=== PATIENT | female | born 1940 | race Caucasian/White ===

== ENCOUNTER 2017-12-11 17:54 | Inpatient (IN) | payer MEDICARE ==
--- NOTE | 2017-12-11 18:02 | ED Physician Chart ---
ED Chief Complaint/HPI - Patient Information Date Seen:: 12/11/17 Time Seen:: 17:50 Chief Complaint:: Agitation History of Present Illness:: onset x 3 days of agitation and aggressive behavior; no report of trauma, H/As, neck pain, C/P, SOB, Abd. Pain, A/N/V/D/C, fever, chills, SIs, or urinary s/s Historian:: Patient, EMS Review:: Nurse's Note Reviewed, Old Chart Reviewed, EMS run form Reviewed ED Review of Systems - Review of Systems General/Constitutional: No fever, No chills, No weight loss, No weakness, No diaphoresis, No edema, No loss of appetite Skin: No skin lesions, No rash, No bruising Head: No headache, No light-headedness Eyes: No loss of vision, No pain, No diplopia ENT: No earache, No nasal drainage, No sore throat, No tinnitus Neck: No neck pain, No swelling, No thyromegaly, No stiffness, No mass noted Cardio Vascular: No chest pain, No palpitations, No PND, No orthopnea, No edema Pulmonary: No SOB, No cough, No sputum, No wheezing GI: No nausea, No vomiting, No diarrhea, No pain, No melena, No hematochezia, No constipation, No hematemesis G/U: No dysuria, No frequency, No hematuria, No nacturia [employer]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, No abnormal vaginal bleed, No contraction Musculoskeletal: No bone or joint pain, No back pain, No muscle pain Endocrine: No polyuria, No polydipsia Psychiatric: Prior psych history, No depression, Anxiety, No suicidal ideation, No homicidal ideation, No auditory hallucination, No visual hallucination Hematopoietic: No bruising, No lymphadenopathy Allergic/Immuno: No urticaria, No angioedema Neurological: No syncope, No focal symptoms, No weakness, No paresthesia, No headache, No seizure, No dizziness, No confusion, No vertigo ED Past Medical History - Past Medical History Obtainable: Yes Past Medical History: HTN, Dyslipidemia, Arthritis Family History: HTN Social History: Non Smoker, No Alcohol, No Drug Use, Single, Care Facility Surgical History: other (Colostomy) Psychiatricy History: Bipolar Medication: Reviewed ED Physical Exam - Physical Examination General/Constitutional: Awake, Well-developed, well-nourished, Alert, No distress, GCS 15, Non-toxic appearing, Ambulatory Head: Atraumatic Eyes: Lids, conjuctiva normal, PERRL, EOMI Skin: No rash, No ecchymosis, Well hydrated, No lymphadenopathy Other Skin comments:: + Sacral Decubitus Ulcer ENMT: External ears, nose nl, TM canals nl, Nasal exam nl, Lips, teeth, gums nl , Oropharynx nl, Tonsils nl Neck: Nontender, Full ROM w/o pain, No JVD, No nuchal rigidity, No bruit, No mass, No stridor Respiratory: Nl effort/Exclusion, Clear to Auscultation, No Wheeze/Rhonchi/Rales Cardio Vascular: RRR, No murmur, gallop, rubs, NL S1 S2, Carotid/Femoral/Distal pulses equal bilaterally GI: No tenderness/rebounding/guarding, No organomegaly, No hernia, Normal BS's, Nondistended, No mass/bruits, No McBurney tenderness : No CVA tenderness Extremities: No tenderness or effusion, Full ROM, normal strength in all extremities, No edema, Normal digits & nails Neuro/Psych: Alert/oriented, DTR's symmetric, Normal sensory exam, Normal motor strength, Mood normal, Normal gait, No focal deficits Other Neuro/Psych comments:: + Psychomotor Agitation; no SIs Misc: Normal back, No paraspinal tenderness ED Labs/Radiology/EKG Results - Lab Results Comments:: BUN: 49; Na+: 134; H/H: + Anemia ED Septic Shock - . Is Septic Shock (SBP<90, OR Lactate>4 mmol\L) present?: No ED Reassessment (Disposition) - Reassessment Reassessment Condition:: Improved - Diagnosis Diagnosis:: Dx: Dehydration; Agitation; Bipolar Disorder; Hyponatremia; Decubitus Ulcer; Anemia - Aftercare/Follow up Instructions Aftercare/Follow-Up Instructions:: Counseled pt regarding lab results/diagnosis & need follow up, Counseled pt & family regarding lab results/diagnosis & need follow up - Patient Disposition Discharge/Transfer:: Acute Care w/in this hosp Accepting Physician:: Dr. Schmidt Time Called:: 1944 Time Responded:: 19:45 Admitted to:: Med/Surg Spoke to:: Dr. Schmidt Admitting Medical Physician:: Dr. Schmidt Condition at Disposition:: Stable, Improved
[2017-12-11 18:36] LABS: HEMATOCRIT 31.7 % (41.0-60); HEMOGLOBIN 10.4 gm/dL (12-16); MEAN CELL VOLUME 71.3 fl (81-100); MEAN CORPUSCULAR HEMOGLOBIN 23.3 pg (27.0-31.0); MEAN CORPUSCULAR HGB CONC 32.7 pg (28.0-36.0); MEAN PLATELET VOLUME 8.4 fl; PLATELET COUNT 547 Th/cmm (150-400); RED BLOOD COUNT 4.45 Mil/cmm (3.80-5.20); RED CELL DISTRIBUTION WIDTH 17.2 % (11.5-20.0); WHITE BLOOD COUNT 8.7 Th/cmm (4.8-10.8)
[2017-12-11 18:37] LABS: % BASOPHILS 0.1 % (0.0-2.0); % EOSINOPHILS 8.7 % (0.0-5.0); % LYMPHOCYTES 17.5 % (20.0-50.0); % MONOCYTES 7.7 % (2.0-10.0); EOSINOPHILE ABSOLUTE 0.8 Th/cmm (0.1-0.4); LYMPHOCYTE ABSOLUTE 1.5 Th/cmm (1.5-3.0); MONOCYTE ABSOLUTE 0.7 Th/cmm (0.3-1.0)
[2017-12-11 18:46] LABS: ACETAMINOPHEN < 10.0 ug/mL (10.0-30.0); ALB/GLOB RATIO 0.9 (1.0-1.8); ALBUMIN 3.2 gm/dL (3.7-5.3); ALKALINE PHOSPHATASE 49 U/L (34-104); BILIRUBIN,TOTAL 0.2 mg/dL (0.3-1.0); BUN - UREA NITROGEN 49 mg/dL (7-25); CALCIUM SERUM 9.4 mg/dL (8.6-10.3); CARBON DIOXIDE 20.3 mEq/L (21.0-31.0); CHLORIDE 106 mEq/L (98-107); CHOLESTEROL 123 mg/dL (<200); CREATININE - SERUM 1.5 mg/dL (0.6-1.2); GLUCOSE 164 mg/dL (70-105); HDL -HIGH DENSITY LIPOPROTEIN 37 mg/dL (23-92); POTASSIUM SERUM 4.3 mEq/L (3.5-5.1); SGOT 11 U/L (13-39); SGPT/ALT 9 U/L (7-52); SODIUM SERUM 134 mEq/L (136-145); TOTAL PROTEIN,SERUM 6.8 gm/dL (6.0-8.3); TRIGLYCERIDES 105 mg/dL (<150)
[2017-12-11 19:10] LABS: SALICYLATES (ASPIRIN) < 25.0 mg/L (30.0-100.0)
[2017-12-11] MEDS ORDERED: Sodium Chloride 0.9% 1,000 ML IV ONE (19:52)
[2017-12-11 21:46] LABS: INR 1.02 (0.5-1.4); PROTHROMBIN TIME (TEST) 10.6 SECONDS (9.5-11.5)
[2017-12-11] MEDS: Sodium Chloride 0.9% 1,000 ML IV SCH (23:04)
[2017-12-12 00:14] LABS: URINE MICROSCOPIC INDICATED? YES; URINE SOURCE CLEAN C
[2017-12-12 00:37] LABS: URINE BILIRUBIN NEGATIVE (NEGATIVE); URINE BLOOD NEGATIVE (NEGATIVE); URINE GLUCOSE (UA) NEGATIVE (NEGATIVE); URINE KETONE NEGATIVE (NEGATIVE); URINE LEUKOCYTE ESTERASE LARGE (NEGATIVE); URINE NITRATE POSITIVE (NEGATIVE); URINE PROTEIN 30 mg/dL (NEGATIVE); URINE UROBILINOGEN 0.2 E.U./dL (0.2 - 1.0)
[2017-12-12 00:44] LABS: AMPHETAMINE URINE NEGATIVE (NEGATIVE); BARBITURATES URINE NEGATIVE (NEGATIVE); BENZODIAZEPINES QUAL URINE NEGATIVE (NEGATIVE); CANNABINOID THC NEGATIVE (NEGATIVE); COCAINE METABOLITE QUAL URINE NEGATIVE (NEGATIVE); METHADONE URINE NEGATIVE (NEGATIVE); METHAMPHETAMINES QUAL URINE NEGATIVE (NEGATIVE); OPIATES (MORPHINE) QUAL. URINE NEGATIVE (NEGATIVE); PHENCYCLIDINE (PCP) URINE NEGATIVE (NEGATIVE); TRICYCLICS (TCA) QUAL. URINE NEGATIVE (NEGATIVE)
[2017-12-12 00:46] LABS: URINE CLARITY CLOUDY (CLEAR); URINE COLOR YELLOW
[2017-12-12 00:56] LABS: URINE BACTERIA MANY /hpf (NONE SEEN); URINE EPITHELIAL CELLS FEW /lpf (FEW); URINE RBC 0-2 /hpf (0-5)
[2017-12-12 03:48] VITALS: BP 138/79
[2017-12-12 07:36] LABS: % EOSINOPHILS 9.7 % (0.0-5.0); % LYMPHOCYTES 26.5 % (20.0-50.0); % MONOCYTES 6.5 % (2.0-10.0); % NEUTROPHILS 56.3 % (40.0-80.0); BASOPHILE ABSOLUTE 0.1 Th/cumm (0-0.2); EOSINOPHILE ABSOLUTE 0.9 Th/cmm (0.1-0.4); HEMATOCRIT 31.3 % (41.0-60); LYMPHOCYTE ABSOLUTE 2.4 Th/cmm (1.5-3.0); MEAN CELL VOLUME 71.8 fl (81-100); MEAN CORPUSCULAR HGB CONC 32.1 pg (28.0-36.0); MEAN PLATELET VOLUME 9.1 fl; MONOCYTE ABSOLUTE 0.6 Th/cmm (0.3-1.0); NEUTROPHILE ABSOLUTE 4.9 Th/cmm (1.8-8.0); PLATELET COUNT 490 Th/cmm (150-400); RED BLOOD COUNT 4.35 Mil/cmm (3.80-5.20); RED CELL DISTRIBUTION WIDTH 17.1 % (11.5-20.0); WHITE BLOOD COUNT 8.9 Th/cmm (4.8-10.8)
--- NOTE | 2017-12-12 08:27 | Diagnostic Imaging Report ---
Chest x-ray single view History: Pain Comparison: None The heart size is normal. No focal pulmonary parenchymal processes. No hilar or mediastinal abnormalities. Impression: No acute abnormalities
[2017-12-12] MEDS ORDERED: Lactulose 10 Gm/15 mL 30mL UDC PO PRN (09:00)
[2017-12-12] MEDS: Sodium Chloride 0.9% 1,000 ML IV SCH ×2 (09:14→21:00)
[2017-12-12] MEDS ORDERED: Albuterol/Ipratropium Neb 3 ML AERS HHN PRN (09:32)
[2017-12-12] MEDS ORDERED: Non-Formulary Item 1 EA (Amino Acids/Protein Hydrolys [Pro-Stat Max Liquid] 30 ML) PO SCH (09:45)
--- NOTE | 2017-12-12 10:35 | Consultation ---
DATE OF CONSULTATION: 12/12/2017 SURGICAL CONSULTATION REFERRING PHYSICIAN: Dr. Schmidt. REASON FOR CONSULTATION: Decubitus ulcer, sacrum. Thank you for referring this patient to me. This 77-year-old female admitted because of aggressive behavior and agitation. I am consulted because he has a stage 4 sacral decubitus ulcer. The patient had previously undergone a diverting colostomy and likely excisional debridement of the ulcer and the wound VAC application. On examination of the ulcer now, which measures about 8 cm across. There is good granulation tissue and minimal necrotic tissue that needs debridement. The patient is obese. He appears to be oriented and refuses any kind of surgical intervention. LABORATORY STUDIES: Show the CBC to be essentially normal. Chemistry: BUN is high at 49, creatinine 1.5. My recommendation is to continue local wound care on the ulcer utilizing Venelex on a daily basis. I am not recommending surgery at this time nor application of wound VAC. JOB# [id number] MTDD
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
[2017-12-12] MEDS: Multivitamin w/ Minerals Tab PO SCH (12:06)
[2017-12-12] MEDS: Fenofibrate, Micronized 134 mg Cap PO SCH (12:06)
[2017-12-12] MEDS: Lactulose 10 Gm/15 mL 30mL UDC PO SCH ×2 (15:35→20:47)
[2017-12-12] MEDS: Venelex 60gm Tube TP SCH (15:44)
[2017-12-12 16:56] LABS: A1C % 7.2 % (4.0-6.0)
[2017-12-12] MEDS: Hydrocodone/APAP 5mg/325mg Tab PO PRN (23:16)
[2017-12-13] MEDS: Venelex 60gm Tube TP SCH (12:06)
[2017-12-13] MEDS: Fenofibrate, Micronized 134 mg Cap PO SCH (12:55)
[2017-12-13] MEDS: Multivitamin w/ Minerals Tab PO SCH (12:57)
[2017-12-13] MEDS: Lactulose 10 Gm/15 mL 30mL UDC PO SCH ×3 (12:58→22:28)
[2017-12-13 14:17] LABS: ANION GAP 6.4 (7.0-16.0); BUN - UREA NITROGEN 31 mg/dL (7-25); CALCIUM SERUM 8.9 mg/dL (8.6-10.3); CARBON DIOXIDE 21.2 mEq/L (21.0-31.0); CHLORIDE 111 mEq/L (98-107); CREATININE - SERUM 1.2 mg/dL (0.6-1.2); GLUCOSE 115 mg/dL (70-105); MAGNESIUM 1.7 mg/dL (1.9-2.7); POTASSIUM SERUM 3.6 mEq/L (3.5-5.1); SODIUM SERUM 135 mEq/L (136-145)
[2017-12-13] MEDS: Sodium Chloride 0.9% 1,000 ML IV SCH (16:57)
[2017-12-14 05:23] LABS: % MONOCYTES 4.8 % (2.0-10.0); HEMATOCRIT 32.9 % (41.0-60); HEMOGLOBIN 10.6 gm/dL (12-16); LYMPHOCYTE ABSOLUTE 1.2 Th/cmm (1.5-3.0); MEAN CELL VOLUME 72.1 fl (81-100); MEAN CORPUSCULAR HEMOGLOBIN 23.2 pg (27.0-31.0); MEAN CORPUSCULAR HGB CONC 32.2 pg (28.0-36.0); MEAN PLATELET VOLUME 8.9 fl; MONOCYTE ABSOLUTE 0.5 Th/cmm (0.3-1.0); WHITE BLOOD COUNT 10.1 Th/cmm (4.8-10.8)
[2017-12-14 05:31] LABS: % BASOPHILS 0.3 % (0.0-2.0); % EOSINOPHILS 1.6 % (0.0-5.0); % LYMPHOCYTES 12.3 % (20.0-50.0); EOSINOPHILE ABSOLUTE 0.2 Th/cmm (0.1-0.4); NEUTROPHILE ABSOLUTE 8.2 Th/cmm (1.8-8.0); PLATELET COUNT 519 Th/cmm (150-400); RED BLOOD COUNT 4.57 Mil/cmm (3.80-5.20); RED CELL DISTRIBUTION WIDTH 16.7 % (11.5-20.0)
[2017-12-14 05:38] LABS: ANION GAP 16.9 (7.0-16.0); BUN - UREA NITROGEN 27 mg/dL (7-25); CALCIUM SERUM 9.2 mg/dL (8.6-10.3); CARBON DIOXIDE 14.4 mEq/L (21.0-31.0); CHLORIDE 109 mEq/L (98-107); CREATININE - SERUM 1.1 mg/dL (0.6-1.2); GLUCOSE 167 mg/dL (70-105); MAGNESIUM 1.6 mg/dL (1.9-2.7); POTASSIUM SERUM 3.3 mEq/L (3.5-5.1); SODIUM SERUM 137 mEq/L (136-145)
[2017-12-14] MEDS ORDERED: Potassium Chloride 40 MEQ, Lidocaine 1% 20mL Vial 25 MG in Sodium Chloride 0.9% 250 ML IV ONE (08:37)
[2017-12-14] MEDS: Fenofibrate, Micronized 134 mg Cap PO SCH (09:26)
[2017-12-14] MEDS: Multivitamin w/ Minerals Tab PO SCH (09:27)
[2017-12-14] MEDS: Lactulose 10 Gm/15 mL 30mL UDC PO SCH ×3 (09:27→22:04)
[2017-12-14] MEDS: Venelex 60gm Tube TP SCH (09:54)
[2017-12-14] MEDS ORDERED: EPOETIN ALFA SUBQ SCH (10:00)
[2017-12-14] MEDS ORDERED: Mag Sulfate 2gm/50mL Premix 2 GM/50 ML BAG IV ONE (10:07)
[2017-12-14] MEDS: Sulfamethoxazole/TMP 800/160mg Tab PO SCH ×2 (11:54→17:45)
[2017-12-15 06:10] LABS: BUN - UREA NITROGEN 18 mg/dL (7-25); CARBON DIOXIDE 16.7 mEq/L (21.0-31.0); CHLORIDE 111 mEq/L (98-107); GLUCOSE 139 mg/dL (70-105); POTASSIUM SERUM 3.7 mEq/L (3.5-5.1); SODIUM SERUM 138 mEq/L (136-145)
[2017-12-15] MEDS: Sodium Chloride 0.9% 1,000 ML IV SCH ×2 (08:23→20:20)
[2017-12-15] MEDS: Lactulose 10 Gm/15 mL 30mL UDC PO SCH ×3 (10:29→20:47)
[2017-12-15] MEDS: Venelex 60gm Tube TP SCH (10:31)
[2017-12-15] MEDS: Fenofibrate, Micronized 134 mg Cap PO SCH (10:31)
[2017-12-15] MEDS: Multivitamin w/ Minerals Tab PO SCH (10:31)
[2017-12-15] MEDS: Sulfamethoxazole/TMP 800/160mg Tab PO SCH (11:53)
--- NOTE | 2017-12-15 13:54 | Consultation ---
DATE OF CONSULTATION: 12/15/2017 PSYCHIATRIC CONSULTATION PHYSICIAN REQUESTING CONSULTATION: Dr. Schmidt. REASON FOR CONSULTATION: Psychosis. HISTORY OF PRESENT ILLNESS: This patient is a 77-year-old resident of [facility] in [place]. Information obtained by directly interviewing the patient as well as reviewing the patient papers. I tried to interview the patient yesterday, but the patient is too sedated and he has not been providing much of any information. The patient is in the interview, has been too groggy still and he is reported to have pulled the G-tube out a couple of days ago and the patient has since then been getting easily irritable. The patient has been reported to have multiple medical problems such as hypertension, dyslipidemia, CVA with left-sided weakness, arthritis, and has been at [facility] and has been admitted over here for medical stabilization prior to her being transferred to the geropsychiatric unit for her aggressive and agitated behavior. The patient is at this time on 5 mg of olanzapine in the morning and 7.5 mg at bedtime, but the patient is noted to be having dysphagia and grogginess and hence I have decided to decrease the dose on the olanzapine to 2.5 mg twice a day and the patient is going to be followed up. PAST PSYCHIATRIC HISTORY: Details are not known. SOCIAL HISTORY: The patient is a resident of the [facility]. There is no history of alcohol use. MENTAL STATUS EXAMINATION: The patient is a 77-year-old moderately obese, superficially cooperative. Eye contact is poor. Mood is noted to be irritable. Affect is constricted. The patient's insight and judgment are noted to be very much impaired. Impulse control seems to be poor. The patient has been very receptive and has been pulling the G-tube out. The patient has no insight into his illness. The patient is noted to be very paranoid. The patient's short term memory is noted to be poor. Long-term memory seems to be fair. DIAGNOSTIC IMPRESSION: Psychosis, not otherwise specified. PLAN: To adjust the dose on the olanzapine and follow the patient with the supportive therapy. Thank you, Dr. Schmidt, for allowing me to participate in the care of the patient. JOB# [id number]
[2017-12-16 06:01] LABS: ANION GAP 11.7 (7.0-16.0); BUN - UREA NITROGEN 17 mg/dL (7-25); CALCIUM SERUM 8.8 mg/dL (8.6-10.3); CARBON DIOXIDE 16.8 mEq/L (21.0-31.0); CHLORIDE 114 mEq/L (98-107); CREATININE - SERUM 1.1 mg/dL (0.6-1.2); GLUCOSE 111 mg/dL (70-105); POTASSIUM SERUM 3.5 mEq/L (3.5-5.1); SODIUM SERUM 139 mEq/L (136-145)
[2017-12-16] MEDS: Fenofibrate, Micronized 134 mg Cap PO SCH (09:24)
[2017-12-16] MEDS: Lactulose 10 Gm/15 mL 30mL UDC PO SCH ×3 (09:24→22:34)
[2017-12-16] MEDS: Multivitamin w/ Minerals Tab PO SCH (09:25)
[2017-12-16] MEDS: Sodium Chloride 0.9% 1,000 ML IV SCH ×2 (09:28→22:35)
[2017-12-16] MEDS: Hydrocodone/APAP 5mg/325mg Tab PO PRN (11:54)
[2017-12-16] MEDS: Venelex 60gm Tube TP SCH (11:55)
--- NOTE | 2017-12-16 18:49 | Progress Notes ---
DATE: 12/16/2017 SUBJECTIVE: Staff was spoken to. The patient is interviewed. Mood is noted to be irritable. Affect is constricted. The patient is not that lethargic as of yesterday, but the patient's coping skills are noted to be still poor. The patient tends to scream and yell. Aggressive behavior seems to be under control today. ASSESSMENT: The patient is still paranoid. PLAN: To continue the patient with the supportive therapy and followup. [facility]# [id number]
[2017-12-17 05:44] LABS: ANION GAP 10.5 (7.0-16.0); BUN - UREA NITROGEN 16 mg/dL (7-25); CALCIUM SERUM 8.6 mg/dL (8.6-10.3); CHLORIDE 117 mEq/L (98-107); CREATININE - SERUM 1.1 mg/dL (0.6-1.2); GLUCOSE 90 mg/dL (70-105); POTASSIUM SERUM 3.5 mEq/L (3.5-5.1); SODIUM SERUM 139 mEq/L (136-145)
[2017-12-17 07:38] LABS: NEUTROPHILE ABSOLUTE 6.1 Th/cmm (1.8-8.0)
[2017-12-17] MEDS: Fenofibrate, Micronized 134 mg Cap PO SCH (08:58)
[2017-12-17] MEDS: Venelex 60gm Tube TP SCH (08:59)
[2017-12-17] MEDS: Multivitamin w/ Minerals Tab PO SCH (08:59)
[2017-12-17] MEDS: Lactulose 10 Gm/15 mL 30mL UDC PO SCH ×4 (09:00→21:08)
[2017-12-17] MEDS: Sodium Chloride 0.9% 1,000 ML IV SCH (09:11)
[2017-12-17] MEDS ORDERED: Sodium Chloride 0.45% 1,000 ML IV SCH (09:30)
[2017-12-18] MEDS: Fenofibrate, Micronized 134 mg Cap PO SCH ×2 (09:28→10:11)
[2017-12-18] MEDS: Lactulose 10 Gm/15 mL 30mL UDC PO SCH ×3 (09:28→16:13)
[2017-12-18] MEDS: Multivitamin w/ Minerals Tab PO SCH ×2 (09:29→10:11)
[2017-12-18] MEDS: Venelex 60gm Tube TP SCH (09:43)
[2017-12-18 10:59] LABS: ANION GAP 9.9 (7.0-16.0); BUN - UREA NITROGEN 16 mg/dL (7-25); CALCIUM SERUM 8.5 mg/dL (8.6-10.3); CARBON DIOXIDE 16.4 mEq/L (21.0-31.0); CHLORIDE 113 mEq/L (98-107); CREATININE - SERUM 1.1 mg/dL (0.6-1.2); GLUCOSE 139 mg/dL (70-105); MAGNESIUM 1.4 mg/dL (1.9-2.7); POTASSIUM SERUM 3.3 mEq/L (3.5-5.1); SODIUM SERUM 136 mEq/L (136-145)
[2017-12-18] MEDS: Hydrocodone/APAP 5mg/325mg Tab PO PRN (11:40)
[2017-12-18] MEDS ORDERED: Potassium Chloride 20 mEq ER Tab PO ONE ×2 (15:00)
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
== END 2017-12-18 20:45 | DRG 640 ==
LOC: ER 17:54 → MSI 20:38
PROVIDERS: ADMIT Internal Medicine; ATTEND Internal Medicine
DX: E86.0 Dehydration (principal); L89.154 Pressure ulcer of sacral region, stage 4; F03.91 Unspecified dementia, unspecified severity, with behavioral disturbance; E11.40 Type 2 diabetes mellitus with diabetic neuropathy, unspecified; R13.10 Dysphagia, unspecified; D64.9 Anemia, unspecified; I69.354 Hemiplegia and hemiparesis following cerebral infarction affecting left non-dominant side; Z68.41 Body mass index [BMI] 40.0-44.9, adult; N39.0 Urinary tract infection, site not specified; E87.1 Hypo-osmolality and hyponatremia; N28.9 Disorder of kidney and ureter, unspecified; E66.9 Obesity, unspecified; I10 Essential (primary) hypertension; R79.89 Other specified abnormal findings of blood chemistry; Z53.29 Procedure and treatment not carried out because of patient's decision for other reasons; F29 Unspecified psychosis not due to a substance or known physiological condition; B96.20 Unspecified Escherichia coli [E. coli] as the cause of diseases classified elsewhere; M19.90 Unspecified osteoarthritis, unspecified site; E78.5 Hyperlipidemia, unspecified; Z16.12 Extended spectrum beta lactamase (ESBL) resistance; Z16.24 Resistance to multiple antibiotics; F31.9 Bipolar disorder, unspecified; K21.9 Gastro-esophageal reflux disease without esophagitis; J44.9 Chronic obstructive pulmonary disease, unspecified; Z93.3 Colostomy status; Z82.49 Family history of ischemic heart disease and other diseases of the circulatory system; Z87.828 Personal history of other (healed) physical injury and trauma; Z86.718 Personal history of other venous thrombosis and embolism; Z88.1 Allergy status to other antibiotic agents; Z93.1 Gastrostomy status; Z88.8 Allergy status to other drugs, medicaments and biological substances; Z88.5 Allergy status to narcotic agent; Z88.0 Allergy status to penicillin; Z79.899 Other long term (current) drug therapy
CPT/HCPCS: 36415-UA; 71045-TC; 80048-TC; 80053-TC; 80061-TC; 80202-TC; 80307; 80320-TC; 80329-TC; 81001-TC; 82550-TC; 82948-90; 83036-90; 83605; 83735-TC; 83880-TC; 84443-TC; 85025-TC; 85610-TC; 85730-TC; 86592-TC; 87070-90; 87075-90; 87086-90; 87205-90; 93005; 94760; 97530; J2001; J2185; J3370; J3475; J3480; J7030; J7051; X3401; X3904; Z7610